=== PATIENT | male | born 1995 | race Caucasian/White ===

== ENCOUNTER 2016-11-07 15:47 | Emergency (ER) | payer MEDICAID, OTHER ==
[~2016-11-07] VITALS: Ht 180.3 cm; Wt 80.0 kg
[~2016-11-07 15:47] MED LIST: META30CA
[2016-11-07 15:48] VITALS: BP 155/107; PULSE 103; RESP 20; TEMP 98.5; O2SAT 100
--- NOTE | 2016-11-07 16:04 | PD ---
Physical Exam Time Seen by Provider: 16:03 Narrative Pt presents to the ED for evaluation of rectal pain for 2 days. States he feels a tender lump at his rectum. Pain aggravated by palpation and sitting on his bottom. Denies abdominal pain, nausea or vomiting. VSS. Awaiting bed placement. Data Data Last Documented VS Vital Signs Date Time Temp Pulse Resp B/P Pulse Ox O2 Delivery O2 Flow Rate FiO2 11/07/16 15:48 98.5 103 20 155/107 100 Room Air MDM Supervised Visit with ABI: Savannah Zambrano Nov 07, 2016 16:04
[2016-11-07] MEDS ORDERED: SODIUM CHLORIDE 0.9% FLUSH 10 ML FLUSH IV FLUSH PRN (16:45)
--- NOTE | 2016-11-07 17:01 | PD ---
HPI Chief Complaint: GI Complaint Time Seen by Provider: 16:35 Travel History International Travel<30 days: No Contact w/Intl Traveler<30days: No Traveled to known affect area: No History of Present Illness HPI 21-year-old male presents emergency department for evaluation of rectal pain 4 days. Patient reports right-sided rectal and buttocks pain making bowel movements and sitting very painful. He denies rectal bleeding or history of hemorrhoid. He denies fevers, chills, abdominal pain, constipation or diarrhea. PFSH Past Medical History Medical History: Denies Significant Hx Diminished Hearing: No Immunizations Current: Yes Tetanus Vaccination: Unknown Past Surgical History Oral Surgery: Yes Other Surgery: Yes (CYSTS REMOVED FROM ESOPHAGUS) Social History Alcohol Use: No Tobacco Use: Yes (1 ppd) Substance Use: No Allergies-Medications (Allergen,Severity, Reaction): Coded Allergies: Codeine (Verified Allergy, Unknown, 11/07/16) Penicillin (Verified Allergy, Unknown, 11/07/16) Versed (Verified Allergy, Unknown, 11/07/16) Reported Meds & Prescriptions Reported Meds & Active Scripts Active Flagyl (Metronidazole) 500 Mg Tab 500 Mg PO TID Cipro (Ciprofloxacin HCl) 500 Mg Tab 500 Mg PO BID Review of Systems Except as stated in HPI: all other systems reviewed are Neg General / Constitutional: No: Fever Eyes: No: Visual changes HENT: No: Headaches Cardiovascular: No: Chest Pain or Discomfort Respiratory: No: Shortness of Breath Gastrointestinal: Positive: Other (rectal pain), No: Abdominal Pain Physical Exam Narrative GENERAL: Alert, well-appearing male. SKIN: Focused skin assessment warm/dry. HEAD: Atraumatic. Normocephalic. NECK: Trachea midline. No JVD. CARDIOVASCULAR: Regular rate and rhythm. No murmur appreciated. RESPIRATORY: No accessory muscle use. Clear to auscultation. Breath sounds equal bilaterally. GASTROINTESTINAL: Abdomen soft, non-tender, nondistended. Hepatic and splenic margins not palpable. MUSCULOSKELETAL: No obvious deformities. No clubbing. No cyanosis. No edema. RECTAL: Right-sided perianal tenderness, patient has notable pain with REBECCA, no rectal mass, no hemorrhoids. NEUROLOGICAL: Awake and alert. No obvious cranial nerve deficits. Motor grossly within normal limits. Normal speech. PSYCHIATRIC: Appropriate mood and affect; insight and judgment normal. Data Data Last Documented VS Vital Signs Date Time Temp Pulse Resp B/P Pulse Ox O2 Delivery O2 Flow Rate FiO2 11/07/16 15:48 98.5 103 20 155/107 100 Room Air Orders Basic Metabolic Panel (Bmp) (11/07/16 16:43) Complete Blood Count With Diff (11/07/16 16:43) Ct Abd/Pel W Iv Contrast(Rout) (11/07/16 16:43) Iv Access Insert/Monitor (11/07/16 16:43) Sodium Chloride 0.9% Flush (Ns Flush) (11/07/16 16:45) Ketorolac Inj (Toradol Inj) (11/07/16 17:45) Sodium Chlor 0.9% 1000 Ml Inj (Ns 1000 M (11/07/16 17:45) Iohexol 350 Inj (Omnipaque 350 Inj) (11/07/16 18:21) Labs Laboratory Tests Test 11/07/16 17:15 White Blood Count 7.4 TH/MM3 Red Blood Count 5.74 MIL/MM3 Hemoglobin 16.9 GM/DL Hematocrit 51.3 % Mean Corpuscular Volume 89.4 FL Mean Corpuscular Hemoglobin 29.5 PG Mean Corpuscular Hemoglobin 33.0 % Concent Red Cell Distribution Width 13.0 % Platelet Count 295 TH/MM3 Mean Platelet Volume 9.5 FL Neutrophils (%) (Auto) 66.8 % Lymphocytes (%) (Auto) 19.4 % Monocytes (%) (Auto) 11.8 % Eosinophils (%) (Auto) 1.7 % Basophils (%) (Auto) 0.3 % Neutrophils # (Auto) 5.0 TH/MM3 Lymphocytes # (Auto) 1.4 TH/MM3 Monocytes # (Auto) 0.9 TH/MM3 Eosinophils # (Auto) 0.1 TH/MM3 Basophils # (Auto) 0.0 TH/MM3 CBC Comment DIFF FINAL Differential Comment Sodium Level 140 MEQ/L Potassium Level 3.8 MEQ/L Chloride Level 105 MEQ/L Carbon Dioxide Level 27.5 MEQ/L Anion Gap 8 MEQ/L Blood Urea Nitrogen 9 MG/DL Creatinine 1.09 MG/DL Estimat Glomerular Filtration 86 ML/MIN Rate Random Glucose 76 MG/DL Calcium Level 9.9 MG/DL MDM Medical Decision Making Medical Screen Exam Complete: Yes Emergency Medical Condition: Yes Differential Diagnosis Anorectal abscess, anal fissure, hemorrhoids Narrative Course 21-year-old male with chief complaint of right-sided rectal and buttock pain 4 days. On exam patient has acute pain and tenderness with REBECCA on the right side. No mass or fluctuance palpated. CT pending. CT of pelvis: 2.21.6 cm perianal abscess on the right side. 1920: spoke with Dr. Grigsby (surgery on-call) regarding CT findings. He recommends oral Cipro & Flagyl for 10 days. Discuss diagnostic findings with patient. He agrees to follow-up in 2 days. Return precautions discussed. Patient verbalizes understanding agrees to plan. Diagnosis Primary Impression: Perianal abscess Referrals: [facility] Additional Instructions: Take the antibiotics as prescribed. Drink plenty of fluids. Stool softeners as needed. Apply warm compresses to the area. Return to the emergency department if he develops severe increasing pain, fever , chills, abdominal pain. Scripts Metronidazole (Flagyl)500 Mg [id number] Mg PO TID #21 TAB Ref 0 Prov:Nai Zapata 11/07/16 Ciprofloxacin (Cipro)500 Mg [id number] Mg PO BID #20 TAB Ref 0 Prov:Nai Zapata 11/07/16 Disposition: 01 DISCHARGE HOME Condition: Stable Nai Zapata Nov 07, 2016 17:01
[2016-11-07] MEDS ORDERED: SODIUM CHLOR 0.9% 1000 ML INJ 1,000 ML IV ONE (17:45)
[2016-11-07] MEDS ORDERED: KETOROLAC TROMETHAMINE 30 MG/ML (IVP) VIAL IVP ONE (17:45)
[2016-11-07 17:55] LABS: BASOPHIL % 0.3 % (0.0-2.0); EOSINOPHIL # 0.1 TH/MM3 (0-0.4); EOSINOPHIL % 1.7 % (0.0-4.0); HEMATOCRIT 51.3 % (39.0-51.0); HEMO FLAGS DIFF FINAL; LYMPH % 19.4 % (9.0-44.0); LYMPHOCYTE # 1.4 TH/MM3 (1.0-4.8); MEAN CELL VOLUME 89.4 FL (80.0-100.0); MEAN CORPUSCULAR HEMOGLOBIN 29.5 PG (27.0-34.0); MONO % 11.8 % (0.0-8.0); NEUT % 66.8 % (16.0-70.0); PLATELET COUNT 295 TH/MM3 (150-450); RED BLOOD COUNT 5.74 MIL/MM3 (4.50-5.90); WHITE BLOOD COUNT 7.4 TH/MM3 (4.0-11.0)
[2016-11-07 18:10] LABS: BICARBONATE 27.5 MEQ/L (21.0-32.0); POTASSIUM 3.8 MEQ/L (3.5-5.1)
[2016-11-07] MEDS ORDERED: IOHEXOL 350 MG/ML 10 ML VIAL (for RAD DIAG) IV ONE (18:21)
--- NOTE | 2016-11-07 18:42 | RADRPT ---
EXAM DATE/TIME: 11/07/2016 18:06 [place] COMPARISON: No previous studies available for comparison. INDICATIONS : Rectal pain past 5 days. Possible perianal abscess. IV CONTRAST: 70 cc Omnipaque 350 (iohexol) IV ORAL CONTRAST: No oral contrast ingested. RADIATION DOSE: 11.72 CTDIvol (mGy) MEDICAL HISTORY : None SURGICAL HISTORY : None. ENCOUNTER: Initial ACUITY: 4 - 6 days PAIN SCALE: 8/10 LOCATION: rectum TECHNIQUE: Volumetric scanning of the abdomen and pelvis was performed. Using automated exposure control and ad justment of the mA and/or kV according to patient size, radiation dose was kept as low as reasonably achievable to obtain optimal diagnostic quality images. DICOM format image data is available electro nically for review and comparison. FINDINGS: Lung bases are clear. No acute findings in the liver, spleen, adrenals, kidneys or pancreas. No free fluid. No bowel obstruction There is a 2.2 x 1.6 cm low attenuation area in the right perianal region characteristic of a small p erianal abscess. No adenopathy. CONCLUSION: 1. 2.2 x 1.6 cm perianal abscess on the right. Mateusz Ballesteros MD on November 07, 2016 at 18:35 Board Certified Radiologist. This report was verified electronically.
[2016-11-07] MEDS ORDERED: CIPR-9 PO ×2 (19:31→19:33)
[2016-11-07] MEDS ORDERED: METR-1 PO ×2 (19:31→19:33)
--- NOTE | 2016-11-07 19:57 | PD ---
Data Data Last Documented VS Vital Signs Date Time Temp Pulse Resp B/P Pulse Ox O2 Delivery O2 Flow Rate FiO2 11/07/16 15:48 98.5 103 20 155/107 100 Room Air Orders Basic Metabolic Panel (Bmp) (11/07/16 16:43) Complete Blood Count With Diff (11/07/16 16:43) Ct Abd/Pel W Iv Contrast(Rout) (11/07/16 16:43) Iv Access Insert/Monitor (11/07/16 16:43) Sodium Chloride 0.9% Flush (Ns Flush) (11/07/16 16:45) Ketorolac Inj (Toradol Inj) (11/07/16 17:45) Sodium Chlor 0.9% 1000 Ml Inj (Ns 1000 M (11/07/16 17:45) Iohexol 350 Inj (Omnipaque 350 Inj) (11/07/16 18:21) Labs Laboratory Tests Test 11/07/16 17:15 White Blood Count 7.4 TH/MM3 Red Blood Count 5.74 MIL/MM3 Hemoglobin 16.9 GM/DL Hematocrit 51.3 % Mean Corpuscular Volume 89.4 FL Mean Corpuscular Hemoglobin 29.5 PG Mean Corpuscular Hemoglobin 33.0 % Concent Red Cell Distribution Width 13.0 % Platelet Count 295 TH/MM3 Mean Platelet Volume 9.5 FL Neutrophils (%) (Auto) 66.8 % Lymphocytes (%) (Auto) 19.4 % Monocytes (%) (Auto) 11.8 % Eosinophils (%) (Auto) 1.7 % Basophils (%) (Auto) 0.3 % Neutrophils # (Auto) 5.0 TH/MM3 Lymphocytes # (Auto) 1.4 TH/MM3 Monocytes # (Auto) 0.9 TH/MM3 Eosinophils # (Auto) 0.1 TH/MM3 Basophils # (Auto) 0.0 TH/MM3 CBC Comment DIFF FINAL Differential Comment Sodium Level 140 MEQ/L Potassium Level 3.8 MEQ/L Chloride Level 105 MEQ/L Carbon Dioxide Level 27.5 MEQ/L Anion Gap 8 MEQ/L Blood Urea Nitrogen 9 MG/DL Creatinine 1.09 MG/DL Estimat Glomerular Filtration 86 ML/MIN Rate Random Glucose 76 MG/DL Calcium Level 9.9 MG/DL MDM Supervised Visit with ABI: Yes Narrative Course The history, exam, and medical decision-making in the associated mid-level provider note were completed with my assistance. I reviewed and agree with the findings presented. I attest that I had a [id number] encounter with the patient on the same day, and personally performed and documented my assessment and findings in the medical record. *My assessment and Findings: 21-year-old man who presents to the emergency department complaining of rectal pain. He states he was consulted a couple weeks ago. Past especially hard stools and since is been having rectal pain and tenderness. Pain when he defecates. On rectal exam he had significant tenderness. Exam shows a perirectal abscess. Spoke with on-call general surgery, there is no colorectal on-call, recommends antibiotics and outpatient follow-up. Diagnosis Primary Impression: Perianal abscess Referrals: [facility] Patient Instructions: General Instructions, Abscess (ED) Departure Forms: Tests/Procedures Additional Instruction: Take the antibiotics as prescribed. Drink plenty of fluids. Stool softeners as needed. Apply warm compresses to the area. Return to the emergency department if he develops severe increasing pain, fever , chills, abdominal pain. Scripts Metronidazole (Flagyl)500 Mg [id number] Mg PO TID #21 TAB Ref 0 Prov:Nai Zapata 11/07/16 Ciprofloxacin (Cipro)500 Mg [id number] Mg PO BID #20 TAB Ref 0 Prov:Nai Zapata 11/07/16 Disposition: 01 DISCHARGE HOME Condition: Stable Christian Espitia MD Nov 07, 2016 19:57
== END 2016-11-07 19:54 | disposition home or self-care (01) ==
LOC: NEPD 15:47
DX: K61.2 Anorectal abscess (principal); F17.210 Nicotine dependence, cigarettes, uncomplicated
CPT/HCPCS: 74177; 80048; 85025; 96361; 96374; 99285; J1885; J7030; Q9967

== ENCOUNTER 2017-08-29 15:39 | Emergency (ER) | payer SELFPAY ==
[~2017-08-29 15:39] MED LIST changes: +CIPR-9 PO; -META30CA; +METR-1 PO
[2017-08-29 16:09] VITALS: BP 176/94; PULSE 100; RESP 20; TEMP 98.2; O2SAT 100
--- NOTE | 2017-08-29 16:38 | PD ---
HPI Chief Complaint: Abdominal Pain Time Seen by Provider: 16:18 Travel History International Travel<30 days: No Contact w/Intl Traveler<30days: No Traveled to known affect area: No History of Present Illness HPI 22-year-old male presents emergency department with painful lump in the left groin which has been intermittent over the past several weeks. Patient states it started the size of a golf ball when he was standing or straining, and is since worsened to the size of a small tennis ball. He states the pain is an aching pain with sometimes radiating into the left testicle. He states no real changes in his bowels. No nausea or vomiting. No fever. Patient states he can reduce the area with rest and laying down without difficulty. He is here for evaluation and possible surgical consult. He is allergic to codeine, medazepam, and penicillin. PFSH Past Medical History ADHD: Yes Diminished Hearing: No Immunizations Current: Yes Past Surgical History Oral Surgery: Yes Other Surgery: Yes (CYSTS REMOVED FROM ESOPHAGUS) Social History Alcohol Use: No Tobacco Use: Yes (1 ppd) Substance Use: No Allergies-Medications (Allergen,Severity, Reaction): Coded Allergies: codeine (Unverified Allergy, Unknown, 12/18/16) midazolam (Unverified Allergy, Unknown, 12/18/16) penicillin G (Unverified Allergy, Unknown, 12/18/16) Reported Meds & Prescriptions Reported Meds & Active Scripts Active Review of Systems Except as stated in HPI: all other systems reviewed are Neg General / Constitutional: No: Fever, Chills Eyes: No: Visual changes HENT: No: Headaches Cardiovascular: No: Chest Pain or Discomfort Respiratory: No: Shortness of Breath Gastrointestinal: Positive: Abdominal Pain, No: Nausea, Vomiting, Diarrhea, Hematemesis, Hematochezia, Constipation, Changes in Bowel Habits, Indigestion, Dysphagia, Loss of Appetite Genitourinary: No: Urgency, Frequency, Dysuria Musculoskeletal: No: Pain Skin: No Rash Neurologic: No: Weakness Psychiatric: No: Depression Endocrine: No: Polydipsia Hematologic/Lymphatic: No: Easy Bruising Physical Exam Narrative GENERAL: Patient appears in no obvious distress per SKIN: Warm and dry. Normal color. Normal turgor. No rash. HEAD: Atraumatic. Normocephalic. EYES: Pupils equal and round. No scleral icterus. No injection or drainage. ENT: No nasal bleeding or discharge. Mucous membranes pink and moist. Pharynx is clear. Airways patent. NECK: Trachea midline. Supple and nontender CARDIOVASCULAR: Regular rate and rhythm. RESPIRATORY: No accessory muscle use. Clear to auscultation. Breath sounds equal bilaterally. GASTROINTESTINAL: Abdomen soft, non-tender, nondistended. Hepatic and splenic margins not palpable. Patient has a reducible left inguinal hernia which is nontender. It does not appear to extend into the scrotum. Pain is minimal on exam. Bowel sounds are present in all quadrants MUSCULOSKELETAL: Extremities without clubbing, cyanosis, or edema. No obvious deformities. NEUROLOGICAL: Awake and alert. No obvious cranial nerve deficits. Motor grossly within normal limits. Five out of 5 muscle strength in the arms and legs. Normal speech. PSYCHIATRIC: Appropriate mood and affect; insight and judgment normal. Data Data Last Documented VS Vital Signs Date Time Temp Pulse Resp B/P (MAP) Pulse Ox O2 Delivery O2 Flow Rate FiO2 08/29/17 16:09 98.2 100 20 176/94 (121) 100 MDM Medical Decision Making Medical Screen Exam Complete: Yes Emergency Medical Condition: No Differential Diagnosis Left groin pain. Left inguinal hernia. Reducible hernia. Narrative Course A medical screening exam was performed: At the time of evaluation the presenting medical condition was determined not to be of an emergent nature. The patient was given the option of receiving additional care, but declined. Patient was given options for additional community resources from which to obtain care. The Patient Has Been advised to seek medical attention for their presenting complaint. The patient has been advised to return to the ER at any time if an emergent condition develops. Condition: Stable Sinan Lozada Aug 29, 2017 16:38
== END 2017-08-29 16:43 | disposition left against medical advice (07) ==
LOC: NEPD 15:39
DX: K40.90 Unilateral inguinal hernia, without obstruction or gangrene, not specified as recurrent (principal); F90.9 Attention-deficit hyperactivity disorder, unspecified type; F17.200 Nicotine dependence, unspecified, uncomplicated; Z88.5 Allergy status to narcotic agent; Z88.0 Allergy status to penicillin; Z88.8 Allergy status to other drugs, medicaments and biological substances
CPT/HCPCS: 99281